=== PATIENT | female | born 1955 | race Caucasian/White ===

== ENCOUNTER 2016-02-21 14:13 | Emergency (ER) | payer OTHER ==
[2016-02-21 14:22] VITALS: BP 142/81
--- NOTE | 2016-02-21 14:50 | UC ---
Throat Pain/Nasal Rikki HPI - HPI Summary HPI Summary: patient has been struggling with sinus issues for 1 month. today she presents with left sided facial pain, feels likethe left ear and sinus cavity is swollen. chills, headache and fatique - History of Current Complaint Chief Complaint: UCGeneralIllness Stated Complaint: SINUSES/JIMENEZ Time Seen by Provider: 02/21/16 14:30 Hx Obtained From: Patient ?: No Onset/Duration: Gradual Onset, Lasting Weeks Severity: Moderate Pain Intensity: 6 Pain Scale Used: 0-10 Numeric Cough: None Associated Signs & Symptoms: Positive: Sinus Discomfort, Nasal Discharge, Fever Related History: Smoking - Allergies/Home Medications Allergies/Adverse Reactions: Allergies Allergy/AdvReac Type Severity Reaction Status Date / Time Penicillins Allergy Severe hives, Verified 02/21/16 14:22 respiratory Home Medications: Home Medications Cetirizine* [ZyrTEC*] 10 mg PO DAILY 02/21/16 [History Confirmed 02/21/16] Pseudoephedrine HCL ER TAB* [Sudafed 12 Hour*] 120 mg PO BID 02/21/16 [History Confirmed 02/21/16] guaiFENesin ER TAB [Mucinex*] 600 mg PO BID 02/21/16 [History Confirmed 02/21/16 ] PMH/Surg Hx/FS Hx/Imm Hx Previously Healthy: Yes Endocrine History Of: Denies: Diabetes Cardiovascular History Of: Denies: Cardiac Disorders Respiratory History Of: Denies: COPD - Surgical History Surgical History: Yes Surgery Procedure, Year, and Place: right shoulder - Family History Known Family History: Positive: Hypertension, Respiratory Disease - Social History Alcohol Use: Rare Substance Use Type: None Smoking Status (MU): Heavy Every Day Tobacco Smoker Type: Cigarettes Amount Used/How Often: 3/4 ppd Household Exposure Type: Cigarettes - Immunization History Most Recent Influenza Vaccination: none Review of Systems Constitutional: Fever, Chills Skin: Negative Eyes: Negative ENT: Sore Throat, Ear Ache, Nasal Discharge Respiratory: Negative Cardiovascular: Negative Gastrointestinal: Negative Genitourinary: Negative Motor: Negative Neurovascular: Negative Musculoskeletal: Negative Neurological: Headache Psychological: Negative All Other Systems Reviewed And Are Negative: Yes Physical Exam Triage Information Reviewed: Yes Appearance: Well-Nourished, Ill-Appearing, Pain Distress Vital Signs: Initial Vital Signs Temp 97.7 F 02/21/16 14:19 Pulse 88 01/13/17 14:19 Resp 16 02/21/16 14:19 BP 142/81 02/21/16 14:19 Pulse Ox 100 02/21/16 14:19 Vital Signs Reviewed: Yes Eye Exam: Normal Eyes: Positive: Conjunctiva Clear ENT Exam: Normal ENT: Positive: Hearing grossly normal, Pharyngeal erythema, TM red, Other: - nasal turbids red and swollen, clear exudate noted, frontal and maxillary sinus pressure noted, more on the left then the right Dental Exam: Normal Neck exam: Normal Neck: Positive: Supple, Nontender, Enlarged Nodes @ - left cervical Respiratory Exam: Normal Respiratory: Positive: Chest non-tender, Lungs clear, Normal breath sounds Cardiovascular Exam: Normal Cardiovascular: Positive: RRR, No Murmur, Pulses Normal Abdominal Exam: Normal Abdomen Description: Positive: Nontender, No Organomegaly, Soft Bowel Sounds: Positive: Present Musculoskeletal Exam: Normal Musculoskeletal: Positive: Strength Intact, ROM Intact, No Edema Neurological Exam: Normal Neurological: Positive: Alert, Muscle Tone Normal Psychological Exam: Normal Skin Exam: Normal Throat Pain/Nasal Course/Dx - Course Course Of Treatment: hx obtained, exam performed, medications prescribed, educated patient on the effects of smokingg on sinus issues - Differential Dx/Diagnosis Differential Diagnosis/HQI/PQRI: Influenza, Laryngitis, Otitis Media, Pharyngitis, Sinusitis, URI Provider Diagnoses: unilateral sinusitis. pharyngitis. lymphadenopathy. tobacco abuse Discharge - Discharge Plan Condition: Stable Disposition: HOME Patient Education Materials: Sinusitis (ED) Additional Instructions: take the full dose of medication as prescribed. increase your fluid intake and you can continue to use th mucinex per directions on container. Adivl and tylneol for pain and fever.
== END 2016-02-21 14:56 | disposition home or self-care (01) ==
LOC: UCCORT 14:13
DX: J32.9 Chronic sinusitis, unspecified (principal); F17.210 Nicotine dependence, cigarettes, uncomplicated; Z88.0 Allergy status to penicillin
CPT/HCPCS: 99212; G0463

== ENCOUNTER 2016-03-02 07:07 | Emergency (ER) | payer OTHER ==
[2016-03-02] MEDS ORDERED: predniSONE TAB* 20 MG PO ONE (07:35)
[2016-03-02] MEDS ORDERED: Famotidine TAB* 20 MG PO ONE (07:36)
[2016-03-02 07:39] VITALS: BP 144/91
[2016-03-02] MEDS ORDERED: predniSONE TAB* 10 MG ONE (07:40)
--- NOTE | 2016-03-02 07:40 | UC ---
Skin Complaint HPI - HPI Summary HPI Summary: 60 yo female with a three day hx of itching rash Onset while on clindamycin for sinusitis no SOB/Wheezing no tongue swelling or angioedema - History of Current Complaint Chief Complaint: UCAllergicReaction Time Seen by Provider: 03/02/16 07:28 Stated Complaint: HIVES Hx Obtained From: Patient Hx Last Menstrual Period: n/a Onset/Duration: Gradual Onset, Lasting Days Timing: Constant Onset Severity: Mild Current Severity: Moderate Pain Intensity: 2 Pain Scale Used: 0-10 Numeric Location: Diffuse Character: Pruritus, Hives Aggravating: Nothing Alleviating: Cold Compresses Associated Signs & Symptoms: Positive: Rash Related History: Recent change in medication Similar Episode/Dx as: hives - Allergy/Home Medications Allergies/Adverse Reactions: Allergies Allergy/AdvReac Type Severity Reaction Status Date / Time Penicillins Allergy Severe hives, Verified 03/02/16 07:23 respiratory Home Medications: Home Medications Diphenhydramine HCl [Benadryl Allergy] 25 mg PO ONCE PRN 03/02/16 [History Confirmed 03/02/16] Diphenhydramine HCl [Benadryl Allergy] 50 mg PO Q4HR PRN 03/02/16 [History Confirmed 03/02/16] Review of Systems Constitutional: Negative Skin: Rash Eyes: Negative ENT: Negative Respiratory: Negative Cardiovascular: Negative Gastrointestinal: Negative Genitourinary: Negative Motor: Negative Neurovascular: Negative Musculoskeletal: Negative Neurological: Negative Psychological: Negative All Other Systems Reviewed And Are Negative: Yes PMH/Surg Hx/FS Hx/Imm Hx Previously Healthy: Yes Endocrine History Of: Denies: Diabetes Cardiovascular History Of: Denies: Cardiac Disorders Respiratory History Of: Denies: COPD - Surgical History Surgical History: Yes Surgery Procedure, Year, and Place: right shoulder - Family History Known Family History: Positive: Hypertension, Respiratory Disease - Social History Alcohol Use: Rare Substance Use Type: None Smoking Status (MU): Heavy Every Day Tobacco Smoker Type: Cigarettes Amount Used/How Often: 3/4 ppd Household Exposure Type: Cigarettes - Immunization History Most Recent Influenza Vaccination: none Physical Exam Triage Information Reviewed: Yes Appearance: Well-Appearing, No Pain Distress, Well-Nourished Vital Signs: Initial Vital Signs Temp 97 F 03/02/16 07:12 Pulse 104 03/02/16 07:12 Resp 20 03/02/16 07:12 BP 144/91 03/02/16 07:12 Pulse Ox 100 03/02/16 07:12 Eyes: Positive: Conjunctiva Clear ENT: Positive: Normal ENT inspection, Hearing grossly normal, Pharynx normal, Other: - no tongue or uvular edema. Negative: Nasal congestion, Nasal drainage , TMs normal - left TM retracted but not red, Trismus, Muffled/hoarse voice Neck: Positive: Supple, Nontender Respiratory: Positive: Lungs clear, Normal breath sounds, No respiratory distress Cardiovascular: Positive: RRR, No Murmur, Pulses Normal Musculoskeletal: Positive: ROM Intact, No Edema Neurological: Positive: Alert Psychological Exam: Normal Skin: Positive: rashes - diffuse urticaria...worse on trunk/thighs Course/Dx - Diagnoses Provider Diagnoses: urticaria. allergic reaction to clindamycin Discharge - Discharge Plan Condition: Stable Disposition: HOME Prescriptions: Famotidine TAB* [Pepcid TAB*] 20 mg PO DAILY #5 tab Fexofenadine (NF) [Maritza (NF)] 60 mg PO QAM PRN #5 tab PRN Reason: Hives Prednisone [Deltasone] 40 mg PO DAILY #6 tab hydrOXYzine HCL TAB* [Atarax TAB*] 50 mg PO BEDTIME PRN #5 tab PRN Reason: Itching Patient Education Materials: Urticaria (ED) Referrals: Kassandra Maurer MD [Primary Care Provider] - 2 Days (if not significantly better) Additional Instructions: return for new or worsening symptoms
== END 2016-03-02 07:55 | disposition home or self-care (01) ==
LOC: UCCORT 07:07
DX: L50.9 Urticaria, unspecified (principal); T36.8X5A Adverse effect of other systemic antibiotics, initial encounter; Y92.9 Unspecified place or not applicable; F17.210 Nicotine dependence, cigarettes, uncomplicated; Z88.0 Allergy status to penicillin
CPT/HCPCS: 99212; A9270-GY; G0463; J7512

== ENCOUNTER 2016-04-23 13:46 | Emergency (ER) | payer OTHER ==
--- NOTE | 2016-04-23 14:20 | UC ---
Lower Extremity/Ankle HPI - HPI Summary HPI Summary: LEFT ANKLE PAIN X 3 DAYS TWISTED LEFT ANKLE PAIN LATERAL ANKLE , NO SWELLING - History of Current Complaint Chief Complaint: UCLowerExtremity Stated Complaint: LEFT ANKLE INJURY Time Seen by Provider: 04/23/16 14:09 Hx Obtained From: Patient Hx Last Menstrual Period: n/a Onset/Duration: Sudden Onset, Lasting Days - 3, Still Present Severity Initially: Moderate Severity Currently: Moderate Aggravating Factor(s): Standing, Ambulation Alleviating Factor(s): Rest Able to Bear Weight: Yes - Allergies/Home Medications Allergies/Adverse Reactions: Allergies Allergy/AdvReac Type Severity Reaction Status Date / Time Penicillins Allergy Severe hives, Verified 04/23/16 13:56 respiratory Clindamycin Allergy Intermediate Hives Verified 04/23/16 13:57 Home Medications: Home Medications Acetaminophen TAB* [Tylenol TAB*] 650 mg PO Q4H PRN 04/23/16 [History Confirmed 04/23/16] guaiFENesin ER TAB [Mucinex*] 600 mg PO BID 04/23/16 [History Confirmed 04/23/16 ] PMH/Surg Hx/FS Hx/Imm Hx Endocrine History Of: Denies: Diabetes Cardiovascular History Of: Denies: Cardiac Disorders Respiratory History Of: Denies: COPD - Surgical History Surgical History: Yes Surgery Procedure, Year, and Place: right shoulder - Family History Known Family History: Positive: Hypertension, Respiratory Disease - Social History Alcohol Use: Rare Substance Use Type: None Smoking Status (MU): Heavy Every Day Tobacco Smoker Type: Cigarettes Amount Used/How Often: 3/4 ppd Household Exposure Type: Cigarettes - Immunization History Most Recent Influenza Vaccination: none Review of Systems Constitutional: Negative Skin: Negative Eyes: Negative ENT: Negative Musculoskeletal: Other: - LEFT ANKLE PAIN Psychological: Negative All Other Systems Reviewed And Are Negative: Yes Physical Exam Triage Information Reviewed: Yes Appearance: Well-Appearing, No Pain Distress, Well-Nourished Vital Signs: Initial Vital Signs Temp 99 F 04/23/16 14:00 Pulse 88 04/23/16 14:00 Resp 16 04/23/16 14:00 BP 131/84 04/23/16 14:00 Pulse Ox 97 04/23/16 14:00 Vital Signs Reviewed: Yes Eye Exam: Normal Eyes: Positive: Conjunctiva Clear ENT Exam: Normal Respiratory: Positive: Chest non-tender, Lungs clear, Normal breath sounds Cardiovascular: Positive: RRR, No Murmur, Pulses Normal Musculoskeletal: Positive: Other: - LEFT ANKLE: NO SWELLING, NO ECCHYMOSIS, TENDERNESS LATERAL ANKLE, GOOD ROM ON FLEXION , NORMAL STRENGTH Lower Extremity Course/Dx - Differential Dx/Diagnosis Provider Diagnoses: LEFT ANKLE SPRAIN Discharge - Discharge Plan Condition: Stable Disposition: HOME Patient Education Materials: Ankle Sprain (ED) Referrals: Kassandra Maurer MD [Primary Care Provider] - 7 Days
[2016-04-23 14:21] VITALS: BP 131/84
--- NOTE | 2016-04-23 14:34 | RAD ---
INDICATION: Left ankle injury. TECHNIQUE: 3 views of the left ankle were obtained. FINDINGS: Soft tissue swelling is noted along the anterolateral aspect of the ankle. No fracture is seen. Joint spaces appear maintained. IMPRESSION: SOFT TISSUE SWELLING, NO FRACTURE IS SEEN.
== END 2016-04-23 14:33 | disposition home or self-care (01) ==
LOC: UCCORT 13:46
DX: S93.402A Sprain of unspecified ligament of left ankle, initial encounter (principal); X50.1XXA Overexertion from prolonged static or awkward postures, initial encounter; Y93.9 Activity, unspecified; Y92.9 Unspecified place or not applicable; Y99.9 Unspecified external cause status; Z88.1 Allergy status to other antibiotic agents; Z88.0 Allergy status to penicillin; F17.210 Nicotine dependence, cigarettes, uncomplicated
CPT/HCPCS: 99201; G0463

== ENCOUNTER 2017-02-14 10:45 | Emergency (ER) | payer OTHER ==
[2017-02-14 11:00] VITALS: BP 136/82
--- NOTE | 2017-02-14 11:09 | UC ---
Throat Pain/Nasal Rikki HPI - HPI Summary HPI Summary: She has indoor allergies and for the past month she has had sinus pressure. It has not improved with nasal irrigation. She has upper jaw pain beneath the dentures. No fever. No cough. - History of Current Complaint Chief Complaint: UCGeneralIllness Stated Complaint: SINUS PRESSURE Time Seen by Provider: 02/14/17 10:57 Hx Obtained From: Patient Hx Last Menstrual Period: n/a Onset/Duration: Gradual Onset, Lasting Weeks Severity: Moderate Cough: None Associated Signs & Symptoms: Positive: Sinus Discomfort. Negative: Rash Related History: Seasonal Allergies - Allergies/Home Medications Allergies/Adverse Reactions: Allergies Allergy/AdvReac Type Severity Reaction Status Date / Time Penicillins Allergy Severe hives, Verified 02/14/17 10:54 respiratory Clindamycin Allergy Intermediate Hives Verified 02/14/17 10:54 Latex Allergy Swelling Verified 02/14/17 10:54 PMH/Surg Hx/FS Hx/Imm Hx Previously Healthy: No - sinus disease and allergies. - Surgical History Surgical History: Yes Surgery Procedure, Year, and Place: right shoulder - Family History Known Family History: Positive: Hypertension, Respiratory Disease - Social History Lives: With Family Alcohol Use: Rare Substance Use Type: None Smoking Status (MU): Heavy Every Day Tobacco Smoker Type: Cigarettes Amount Used/How Often: 3/4 ppd Household Exposure Type: Cigarettes - Immunization History Most Recent Influenza Vaccination: no 2016 Review of Systems ENT: Sinus Congestion, Sinus Pain/Tenderness All Other Systems Reviewed And Are Negative: Yes Physical Exam Triage Information Reviewed: Yes Appearance: Well-Appearing, No Pain Distress, Well-Nourished Vital Signs: Initial Vital Signs Temp 97.9 F 02/14/17 10:55 Pulse 84 02/14/17 10:55 Resp 16 02/14/17 10:55 BP 136/82 02/14/17 10:55 Pulse Ox 98 02/14/17 10:55 Vital Signs Reviewed: Yes Eye Exam: Normal ENT: Positive: Normal ENT inspection, Pharynx normal, Nasal congestion, TMs normal, Sinus tenderness, Uvula midline. Negative: Pharyngeal erythema, Nasal drainage Neck: Positive: Supple, Nontender, No Lymphadenopathy Respiratory: Positive: Lungs clear, Normal breath sounds, No respiratory distress, No accessory muscle use. Negative: Respiratory distress, Decreased breath sounds, Accessory muscle use, Crackles, Rhonchi, Stridor, Wheezing Cardiovascular: Positive: No Murmur, Pulses Normal, Brisk Capillary Refill Abdomen Description: Positive: No Organomegaly, Soft. Negative: Distended, Guarding Musculoskeletal: Positive: Strength Intact, ROM Intact, No Edema Neurological: Positive: Alert, Muscle Tone Normal. Negative: Fatigued Psychological: Positive: Age Appropriate Behavior Skin: Negative: rashes Throat Pain/Nasal Course/Dx - Course Course Of Treatment: sinusitis. She is normally improved by bactrim. - Differential Dx/Diagnosis Provider Diagnoses: sinusitis Discharge - Discharge Plan Condition: Good Disposition: HOME Prescriptions: Sulfamethox/Trimethoprim DS* [Bactrim DS 800/160 TAB*] 1 tab PO BID #20 tab Patient Education Materials: Sinusitis (ED) Referrals: Kassandra Maurer MD [Primary Care Provider] -
== END 2017-02-14 11:09 | disposition home or self-care (01) ==
LOC: UCCORT 10:45
DX: J32.9 Chronic sinusitis, unspecified (principal); Z72.0 Tobacco use
CPT/HCPCS: 99212; G0463

== ENCOUNTER 2017-11-24 12:46 | Emergency (ER) | payer OTHER ==
--- OUTSIDE RECORDS SUMMARY | 2017-11-24 13:20 | XMS REPORT | Continuity of Care Document ---
:1955 External Reference #:[id number] Author Name Ras Briseno M.D. Address [address] [place] [address] Care Team Providers Name Role Phone Kassandra Maurer M.D. Primary Care Physician Unavailable Payers Type Date Identification Numbers Payment Provider Subscriber Policy Number: [id number] Lifetime Benefit Taylor Annette Patino Group Number: [id number] [id number] PayID: [place] [address] Advance Directives Description No Information Available Problems Date Description Provider Status Onset: Psoriasis Active Onset: Asthma Active Onset: Seasonal allergy Active Onset: Anxiety Active Onset: Basal cell carcinoma of face Active Onset: 09/05/2014 Ptosis of eyelid Melinda Box O.D. Active Onset: 09/05/2014 Nuclear senile cataract Melinda Box O.D. Active Onset: 09/05/2014 Exotropia Melinda Box O.D. Active Onset: 09/05/2014 Hypermetropia Melinda Box O.D. Active Onset: 09/05/2014 Presbyopia Melinda Box O.D. Active Onset: Attention deficit hyperactivity Active disorder Onset: 06/12/2015 Combined form of senile cataract Melinda Box O.D. 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 ETOH Use Occasionally consumes wine Tobacco Use Start: Unknown Patient is a current smoker, smokes 3/4 PPD every day Recreational Drug Use Former Drug User Smoking Status Reviewed: 11/08/17 Patient is a current smoker, smokes 3/4 PPD every day Allergies, Adverse Reactions, Alerts Date Description Reaction Status Severity Comments 09/05/2014 Penicillin Active 06/24/2016 Clindamycin Active Medications Medication Date Status Form Strength Qnty SIG Indications Ordering Provider Alprazolam Active Tablets 0.25mg take 1 Unknown 000 tablet by mouth three times a day if needed for anxiety Ventolin HFA Active Aerosol 108(90Base) inhale 2 Unknown 000 mcg/Act puffs if needed for cough Cymbalta Active Caps DR 20mg Unknown 000 Part Mucinex D Active Tablets ER 60-600mg Unknown 000 12HR Maritza Active Tablets 60mg Unknown Allergy [address] 60mg take 1 Unknown HCL 000 - Part capsule by mouth 016 once daily Aspirin 0 Hx Tablets 81mg Unknown 000 - 016 Vyvanse Hx Capsules 20mg take 1 Unknown 000 - capsule by mouth 017 once daily Lexapro 0 Hx Tablets 10mg Unknown 000 - 017 Xanax XR 0 Hx Tablets ER 0.5mg Unknown 000 - 24HR 017 Nexafed Hx Taba 30mg Unknown 000 - 018 Immunizations Description No Information Available Vital Signs Description No Information Available Results Description No Information Available Procedures Date Code Description Status 06/24/2016 67955 Est Patient Comprehensive Exam Completed 06/24/2016 600 Frame Parts Completed 06/12/2015 83353 Est Patient Comprehensive Exam Completed 09/05/2014 90840 Determination Of Refractive State Completed 09/05/2014 30464 Est Patient Comprehensive Exam Completed 03/07/2013 00538 New Patient Comprehensive Exam Completed 03/07/2013 102 Level 2 Fit RGP/Soft Toric/Bifocal/Monovision/Extended Completed Wear Encounters Description No Information Available Plan of Treatment 11/08/2017 - Ras Briseno M.D.H25.813 Combined forms of age-related cataract , bilateralComments:Smoking can increase the risk of developing or worsening any eye related disease, as well as affect your overall health. If you are a smoker, we strongly recommend that you quit.If you are not a smoker, we strongly recommend that you do not start. You have been diagnosed with cataracts. They are limiting your vision, and I am unable to improve you with new glasses. Our next step is to schedule Cataract surgery and all necessary appointments, which Marjorie will do for you. We recommend that you write down any questions you may have and bring them to your preoperative appointment so that Dr. Briseno can answer them for you. If you have any questions or concerns, you can reach Britney Conner at [phone].Follow up:For preop exam before surgery.H50.112 Monocular exotropia, left eyeComments:If you have an increase in double vision, please call our office. We can also refer you to a surgeon.H04.123 Dry eye syndrome of bilateral lacrimal glandsComments:Both of your eyes appear to be dry. Use artificial tears as directed. You can use the tears more often if you are reading a book or are on the computer, as we tend to blink less, making our eyes dry out more.[facility] offers a few items in our optical department to help alleviate dry eye symptoms. Systane and Refresh are good brands of tears you can use. You can pick these up at any pharmacy and they do not require a prescription.
[2017-11-24 14:33] VITALS: BP 157/89
--- NOTE | 2017-11-24 15:16 | UC ---
Throat Pain/Nasal Rikki HPI - HPI Summary HPI Summary: The patient is a 62-year-old female with a 2 month history of progressively worsening nasal pressure postnasal drip and sinus congestion. Been febrile. As few days her left ear has been hurting. As decreased hearing in her left ear. He smokes one packs of cigarettes per day. - History of Current Complaint Chief Complaint: UCEar Stated Complaint: SINUSES,EARS Time Seen by Provider: 11/24/17 15:02 Hx Obtained From: Patient Hx Last Menstrual Period: n/a Onset/Duration: Gradual Onset, Lasting Weeks Severity: Moderate Pain Intensity: 6 Pain Scale Used: 0-10 Numeric Cough: Nonproductive Associated Signs & Symptoms: Positive: Sinus Discomfort, Nasal Discharge - Epiglottits Risk Factors Epiglottis Risk Factors: Negative - Allergies/Home Medications Allergies/Adverse Reactions: Allergies Allergy/AdvReac Type Severity Reaction Status Date / Time clindamycin Allergy Hives Verified 11/24/17 14:36 latex Allergy Swelling Verified 11/24/17 14:36 Penicillins Allergy hives, Verified 11/24/17 14:35 respiratory PMH/Surg Hx/FS Hx/Imm Hx Previously Healthy: Yes Psychological History: Anxiety - Surgical History Surgical History: Yes Surgery Procedure, Year, and Place: right shoulder - Family History Known Family History: Positive: Hypertension, Respiratory Disease - Social History Alcohol Use: Rare Substance Use Type: None Smoking Status (MU): Heavy Every Day Tobacco Smoker Type: Cigarettes Amount Used/How Often: 3/4 ppd Household Exposure Type: Cigarettes Cessation Counseling: Patient Advised to Stop - Immunization History Most Recent Influenza Vaccination: no 2016 Review of Systems Constitutional: Fever Skin: Negative Eyes: Negative ENT: Ear Ache, Nasal Discharge, Sinus Congestion, Sinus Pain/Tenderness Respiratory: Cough Cardiovascular: Negative Gastrointestinal: Negative Genitourinary: Negative Motor: Negative Neurovascular: Negative Musculoskeletal: Negative Neurological: Negative Psychological: Negative Is Patient Immunocompromised?: No All Other Systems Reviewed And Are Negative: Yes Physical Exam Triage Information Reviewed: Yes Appearance: Well-Appearing, No Pain Distress, Well-Nourished Vital Signs: Initial Vital Signs Temp 98.2 F 11/24/17 14:22 Pulse 84 11/24/17 14:22 Resp 22 11/24/17 14:22 BP 157/89 11/24/17 14:22 Pulse Ox 100 11/24/17 14:22 Vital Signs Reviewed: Yes Eyes: Positive: Conjunctiva Clear ENT: Positive: Sinus tenderness - L max>R max. Negative: Hearing grossly normal , TMs normal - left TM retracted, TM bulging, TM dull, TM red, Trismus, Muffled voice, Hoarse voice Dental Exam: Other - poor dentition Neck: Positive: Supple, Nontender, No Lymphadenopathy Respiratory: Positive: Lungs clear, Normal breath sounds, No respiratory distress, No accessory muscle use Cardiovascular: Positive: RRR, No Murmur Musculoskeletal: Positive: ROM Intact, No Edema Neurological: Positive: Alert Psychological Exam: Normal Skin Exam: Normal Throat Pain/Nasal Course/Dx - Differential Dx/Diagnosis Provider Diagnoses: acute sinsusitis. smoker. elevated BP without dx of hypertension Discharge - Sign-Out/Discharge Documenting (check all that apply): Patient Departure All imaging exams completed and their final reports reviewed: No Studies - Discharge Plan Condition: Stable Disposition: HOME Prescriptions: DOXYcycline CAP(*) [DOXYcycline 100MG CAP(*)] 100 mg PO BID #20 cap Patient Education Materials: Sinusitis (ED) Referrals: Kassandra Maurer MD [Primary Care Provider] - 2 Weeks (BP neeed rechecking in 2-8 weeks) Additional Instructions: saline nasal spray -two sprays each nostril twice daily warm facial compresses you BP today was 157/89 and should be rechecked - Billing Disposition and Condition Condition: STABLE Disposition: Home
== END 2017-11-24 15:17 | disposition home or self-care (01) ==
LOC: UCCORT 12:46
DX: J01.90 Acute sinusitis, unspecified (principal); R03.0 Elevated blood-pressure reading, without diagnosis of hypertension; F17.210 Nicotine dependence, cigarettes, uncomplicated; Z88.0 Allergy status to penicillin; Z88.1 Allergy status to other antibiotic agents; Z91.040 Latex allergy status
CPT/HCPCS: 99212; G0463

== ENCOUNTER → 2017-12-22 10:15 | Day surgery (SDC) | payer OTHER ==
[~2017-12-22 10:15] MED LIST: Acetaminophen TAB* 325 MG PO PRN; Buffered Lidocaine 0.9% SYRIN* 5 ML/SYR SYRINGE INTRADERM ONE; Cyclopentolate 1% OPTH.SOL* 2 ML BTL ONE; Ketorolac 0.5% OPHTH (NF) 0.5 % 5 ML BTL ONE; Lidocaine 1%* 5 ML VIAL ONE; Lidocaine 2% EPI 1:200000 MPF*10-20 ML VIAL ONE; Midazolam* 1 MG/ML 2 ML VIAL (2 MG) ONE; Neomycin/Polymy/Dex OPTH.SUSP* MAXITROL 0.1% 5 ML ONE; Phenylephrine 2.5% OPTH.SOL* 2 ML BTL ONE; Povidone Iodine 5% OPTH* 30 ML BTL ONE; Proparacaine 0.5% OPHTH.SOL* 15 ML BTL ONE; acetaZOLAMIDE TAB* 250 MG ONE
[2017-12-22 12:30] VITALS: BP 128/76
--- NOTE | 2017-12-22 13:16 | OP ---
DATE OF OPERATION: 12/22/2017. DATE OF : 1955. SURGEON: Ras Briseno M.D. PREOPERATIVE DIAGNOSIS: Cataract left eye. POSTOPERATIVE DIAGNOSIS: Cataract left eye. OPERATIVE PROCEDURE: Extracapsular cataract extraction with intraocular lens implant left eye. PROCEDURE: The patient was brought to the operating room after being given 1/2% Alcaine with epineph rine drops in the preoperative area. The eye was prepped and draped in the usual sterile fashion. S terile drape and eyelid speculum were placed. Again, topical 1/2% Alcaine with epinephrine was given . A paracentesis incision was made at the 3 o'clock position with the No.75 blade. Clear cornea inc ision 2.2 x 2.2-mm was created at the 6 o'clock position starting at the anterior limbus using the 2. 2-mm keratome. The anterior chamber was irrigated with 0.4 mL of 1% non-preservative intracameral li docaine and filled with DisCoVisc. A capsulorrhexis was completed using the cystotome and the Utrata forceps. Hydrodissection was performed with balanced salt solution. The lens nucleus was removed wi th the Phacoemulsification handpiece without incident. Cortex was removed with the irrigation-aspira tion handpiece. The capsular bag was re-inflated using DisCoVisc and an [id number] implant was insert ed with the shooter, oriented to the 178 degree meridian. Horizontal reference mauricio made with the p atient in a seated position in the preoperative area. The irrigation-aspiration handpiece was used t o remove all residual DisCoVisc. The eye was refilled with balanced salt solution and the wound chec ked and found to be watertight. Topical Maxitrol drops were given. [id number]/[facility] #: [id number]
== END | disposition home or self-care (01) ==
LOC: OREAST 10:15
PROVIDERS: ATTEND Specialist
DX: H25.812 Combined forms of age-related cataract, left eye (principal); H50.112 Monocular exotropia, left eye; H04.123 Dry eye syndrome of bilateral lacrimal glands; Z88.0 Allergy status to penicillin; Z72.0 Tobacco use; J45.909 Unspecified asthma, uncomplicated; M19.90 Unspecified osteoarthritis, unspecified site
CPT/HCPCS: A9270-GY; J2250; V2787

== ENCOUNTER 2018-01-05 08:22 | Day surgery (SDC) | payer OTHER ==
[~2018-01-05 08:22] MED LIST changes: -Acetaminophen TAB* 325 MG PO PRN; -Cyclopentolate 1% OPTH.SOL* 2 ML BTL ONE; -Ketorolac 0.5% OPHTH (NF) 0.5 % 5 ML BTL ONE; -Lidocaine 1%* 5 ML VIAL ONE; -Lidocaine 2% EPI 1:200000 MPF*10-20 ML VIAL ONE; -Midazolam* 1 MG/ML 2 ML VIAL (2 MG) ONE; -Neomycin/Polymy/Dex OPTH.SUSP* MAXITROL 0.1% 5 ML ONE; -Phenylephrine 2.5% OPTH.SOL* 2 ML BTL ONE; -Povidone Iodine 5% OPTH* 30 ML BTL ONE; -Proparacaine 0.5% OPHTH.SOL* 15 ML BTL ONE; -acetaZOLAMIDE TAB* 250 MG ONE
[2018-01-05] MEDS ORDERED: Midazolam* 1 MG/ML 2 ML VIAL (2 MG) ONE (10:56)
[2018-01-05] MEDS ORDERED: Lidocaine 2% PF * 5 ML VIAL ONE (11:02)
[2018-01-05] MEDS ORDERED: Propofol* 10 MG/ML 20 ML BTL ONE (11:02)
[2018-01-05 11:26] VITALS: BP 117/72
[2018-01-05] MEDS ORDERED: Neomycin/Polymy/Dex OPTH.SUSP* MAXITROL 0.1% 5 ML ONE (12:48)
[2018-01-05] MEDS ORDERED: Povidone Iodine 5% OPTH* 30 ML BTL ONE (12:48)
[2018-01-05] MEDS ORDERED: acetaZOLAMIDE TAB* 250 MG ONE (12:48)
[2018-01-05] MEDS ORDERED: Cyclopentolate 1% OPTH.SOL* 2 ML BTL ONE (12:48)
[2018-01-05] MEDS ORDERED: Phenylephrine 2.5% OPTH.SOL* 2 ML BTL ONE (12:48)
[2018-01-05] MEDS ORDERED: Lidocaine 2% EPI 1:200000 MPF*10-20 ML VIAL ONE (12:48)
[2018-01-05] MEDS ORDERED: Lidocaine 1%* 5 ML VIAL ONE (12:48)
[2018-01-05] MEDS ORDERED: Ketorolac 0.5% OPHTH (NF) 0.5 % 5 ML BTL ONE (12:48)
[2018-01-05] MEDS ORDERED: Proparacaine 0.5% OPHTH.SOL* 15 ML BTL ONE (12:49)
--- NOTE | 2018-01-05 16:03 | OP ---
DATE OF OPERATION: 01/05/2018 [facility] DATE OF : 1955. SURGEON: Ras Briseno M.D. PREOPERATIVE DIAGNOSIS: Cataract right eye. POSTOPERATIVE DIAGNOSIS: Cataract right eye. OPERATIVE PROCEDURE: Extracapsular cataract extraction with intraocular lens implant right eye. DESCRIPTION OF PROCEDURE: The patient was brought to the operating room after being given 1/2% Alcaine with epinephrine drops in the preoperative area. The eye was prepped and draped in the usual sterile fashion. Sterile drape and eyelid speculum were placed. Again, topical 1/2% Alcaine with epinephrine was given. A paracentesis incision was made at the 9 o'clock position with the No.75 blade. Clear cornea incision 2.2 x 2.2-mm was created at the 12 o'clock position starting at the anterior limbus using the 2.2-mm keratome. The anterior chamber was irrigated with 0.4 mL of 1% non-preservative intracameral lidocaine and filled with DisCoVisc. A capsulorrhexis was completed using the cystotome and the Utrata forceps. Hydrodissection was performed with balanced salt solution. The lens nucleus was removed with the Phacoemulsification handpiece without incident. Cortex was removed with the irrigation-aspiration handpiece. The capsular bag was re-inflated using DisCoVisc and an [id number] implant was inserted with the shooter, oriented to the 0 degree meridian. Horizontal reference mauricio were made with the patient in a seated position in the preoperative area. The irrigation-aspiration handpiece was used to remove all residual DisCoVisc. The eye was refilled with balanced salt solution and the wound checked and found to be watertight. Topical Maxitrol drops were given. [id number]/[facility] #: [id number] [facility]
== END 2018-01-05 11:33 | disposition home or self-care (01) ==
LOC: OREAST 08:22
PROVIDERS: ATTEND Specialist
DX: H25.811 Combined forms of age-related cataract, right eye (principal); H50.112 Monocular exotropia, left eye; H04.123 Dry eye syndrome of bilateral lacrimal glands; F17.210 Nicotine dependence, cigarettes, uncomplicated; J45.909 Unspecified asthma, uncomplicated; M19.90 Unspecified osteoarthritis, unspecified site; Z85.828 Personal history of other malignant neoplasm of skin
CPT/HCPCS: A9270-GY; J2250; J2704; V2787